=== PATIENT | male | born 1975 | race Caucasian/White ===

== ENCOUNTER 2020-12-02 19:52 | Emergency (ER) | payer BC, SELFPAY ==
[2020-12-02] VITALS (10 sets, daily range): BP systolic 156–205; BP diastolic 98–118; PULSE 100–145; RESP 16–26; TEMP 36.9; O2SAT 93–97; BMI 25.8
--- NOTE | 2020-12-02 20:07 | DI.RAD.S_ITS ---
PROCEDURE: XR CHEST 1V INDICATIONS: chest pain TECHNIQUE: One view of the chest was acquired. COMPARISON: [facility], CR, XR CHEST 1VW (PORTABLE), 03/19/2016, 8:37. FINDINGS: Surgical changes and devices: None. Lungs and pleura: Lungs are clear. No pleural effusions or pneumothorax. Mediastinum: Mediastinal contours appear normal. Heart size is normal. Bones and chest wall: No suspicious bony lesions. Overlying soft tissues appear unremarkable. IMPRESSION: No acute cardiopulmonary disease. Dictated by: Brandin Parham M.D. on 12/02/2020 at 20:39 Approved by: Brandin Parham M.D. on 12/02/2020 at 20:39
[2020-12-02 20:28] LABS: Alanine Aminotransferase 51 IU/L (<50); Albumin 4.9 g/dL (3.5-5.0); Albumin Globulin Ratio 1.4 (1.0-2.8); Alkaline Phosphatase 120 U/L (38-126); Aspartate Aminotransferase 47 IU/L (17-59); BUN Creatinine Ratio 22.9 (6-22); Bilirubin Total 0.5 mg/dL (0.2-1.3); Blood Urea Nitrogen 16 mg/dL (9-20); Calcium 9.8 mg/dL (8.4-10.2); Carbon Dioxide 26 mmol/L (22-32); Chloride 97 mmol/L (98-107); Creatine Kinase 101 U/L (55-170); Estimated Glomerular Filt Rate > 60.0 mL/min (>60); Globulin 3.6 g/dL (1.7-4.1); Glucose 134 mg/dL (70-100); HEMOLYSIS 34 (0-50); Lipase 162 U/L (23-300); Potassium 3.7 mmol/L (3.4-5.1); Sodium 137 mmol/L (137-145); Total Protein 8.5 g/dL (6.3-8.2)
[2020-12-02 20:35] LABS: Add Manual Diff / Slide Review NO; Basophils Absolute Auto 0 /uL (0-100); Basophils Percent Auto 0.3 % (0-2); Eosinophils Absolute Auto 100 /uL (0-450); Hematocrit 46.1 % (41-53); Hemoglobin 16.3 g/dL (13.5-17.5); Lymphocytes Absolute Auto 2800 /uL (1100-4500); Lymphocytes Percent Auto 26.9 % (25-40); Mean Corpuscular HGB Conc 35.4 % (30-36); Mean Corpuscular Hemoglobin 33.1 PG (26-34); Mean Corpuscular Volume 93.4 fL (80-100); Monocytes Absolute Auto 800 /uL (0-900); Neutrophils Absolute Auto 6600 /uL (1500-7000); Neutrophils Percent Auto 63.8 % (50-75); Platelet Count 310 X10^3/uL (150-400); Red Blood Cell Count 4.94 X10^6/uL (4.5-5.9); Red Cell Distribution Width 13.1 % (11.6-14.8); White Blood Cell Count 10.4 X10^3/uL (4.5-11.0)
[2020-12-02 20:40] LABS: Troponin I < 0.012 ng/mL (0.01-0.034)
[2020-12-02 20:43] LABS: CKMB % Relative Index 0.6 % (1.5-5.0)
[2020-12-02] MEDS: SODIUM CHLORIDE 0.9% 1,000 ML 1000 ML IV (20:55)
[2020-12-02 21:19] LABS: D Dimer 948 ng/mL (<230)
--- NOTE | 2020-12-02 21:28 | ED_ITS ---
HPI - Arrhythmia/Palpitations General Chief Complaint: Arrhythmia/Palpitations Stated Complaint: HEART RATE 170 Time Seen by Provider: 12/02/20 20:47 Source: patient and family () Mode of arrival: Ambulatory Limitations: no limitations History of Present Illness HPI narrative: This is a 45-year-old male who comes in with complaint of elevated heart rate that occurred while he was eating dinner. He states he has an apple watch and noted his heart rate was in the 170 patient and had some chest pain, he felt a little bit short of breath. He felt hot but was not diaphoretic. No lightheadedness or passing out. No nausea or vomiting. No other GI or urinary symptoms. He feels much better now that his heart rate is improving. Patient has had 3 episodes last 3 weeks. One while exercising, the second he states while doing nothing and the third tonight while eating dinner. He has no medical issues. No prior surgeries. Denies allergies. Positive for tobacco, patient does drink 3 alcoholic drinks daily. Does not use any illicit. He is accompanied by his and they were celebrating there 20th anniversary this evening. Patient does not have any known cardiac, pulmonary or embolic family history except for some cardiac issues were grandparents. He has not any long distance travel or sedentary activity. Review of Systems Review of Systems ROS Unobtainable: All systems reviewed & are unremarkable except as noted in HPI and below Patient History Social History Smoking Status: Current every day smoker Smoking Status: Current every day smoker alcohol intake frequency: 3 or more drinks per day Alcohol type: wine Substance Use Type: does not use Exam Narrative Exam Narrative: GENERAL: Alert and oriented x three, well-nourished male in mild distress. HEENT: Head normocephalic, atraumatic, EOMI, pupils reactive, face symmetric, moist mucous membranes NECK: Supple, full range of motion CARDIOVASCULAR: Tachycardic in the 105 range but regular rate and rhythm without murmurs, rubs or gallops. No JVD. RESPIRATORY: Breath sounds equal bilaterally, no wheezes rales or rhonchi. ABDOMEN: Soft, nontender. Normoactive bowel sounds all 4 quadrants. No guarding or rebound, rigidity, no mass : No CVA tenderness EXTREMITIES: Normal range of motion, no clubbing or edema. Neurovascularly intact NEUROLOGICAL: Cranial nerves II through XII grossly intact. Moving all extremities SKIN: Warm, dry, no petechiae, no rashes or lesions. Initial Vital Signs Initial Vital Signs: Vital Signs Blood Pressure 205/118 H 12/02/20 20:03 Course Orders Ordered: ED Orders 12/02/20 20:07 XR chest 1V Stat EKG-12 Lead Stat 12/02/20 20:10 Complete Blood Count AUTO DIFF Stat Comprehensive Metabolic Panel Stat D Dimer Stat Lipase Stat Troponin & CK Cardiac Panel Stat 12/02/20 21:34 CT angio chest PE protocol Stat Discontinued Medications Sodium Chloride (Normal Saline 0.9%) 1,000 mls @ 1,000 mls/hr IV BOLUS ONE Stop: 12/02/20 21:47 Last Infusion: 12/02/20 21:50 Dose: 0 mls/hr Documented by: Admin: 12/02/20 20:55 Dose: 1,000 mls/hr Documented by: JCARLOS Reevaluation(s) Time: 23:18 Consultations Consultation #1: Dr. Contreras, recommend follow-up but patient can also try [email or web address]. Link shared with myself and patient. Discussed possible SVT with sudden onset but with slowly improving sinus tachycardia here in the department seems less likely. They are happy to follow-up with the patient. As he is improving here in the department plan for short-term follow-up with Cardiology. Time: 11:18 Vital Signs Vital signs: Vital Signs - 8 hr 12/02/20 20:04 12/02/20 20:09 12/02/20 20:30 Temperature 98.4 F Pulse Rate 137 H 130 H 119 H Respiratory Rate 19 26 H 20 Blood Pressure 205/118 H 179/109 H 163/101 H Pulse Oximetry 96 96 93 12/02/20 21:00 12/02/20 21:30 12/02/20 22:00 Temperature Pulse Rate 106 H 100 H 107 H Respiratory Rate 19 18 19 Blood Pressure 156/100 H 156/98 H Pulse Oximetry 95 96 94 12/02/20 22:30 12/02/20 23:00 12/02/20 23:20 Temperature Pulse Rate 109 H 108 H Respiratory Rate 19 19 Blood Pressure 164/100 H Pulse Oximetry 94 94 MDM - Arrhythmia/Palpitations Lab Data Attestation: I reviewed the patient's lab results. Result diagrams: 12/02/20 20:10 12/02/20 20:10 Labs: Lab Results 12/02/20 12/02/20 12/02/20 Range/Units 20:10 20:10 20:10 WBC 10.4 (4.5-11.0) X10^3/uL RBC 4.94 (4.5-5.9) X10^6/uL Hgb 16.3 (13.5-17.5) g/dL Hct 46.1 (41-53) % MCV 93.4 (80-100) fL MCH 33.1 (26-34) PG MCHC 35.4 (30-36) % RDW 13.1 (11.6-14.8) % Plt Count 310 (150-400) X10^3/uL Neut % (Auto) 63.8 (50-75) % Lymph % (Auto) 26.9 (25-40) % [place] % (Auto) 8.0 (3-14) % Eos % (Auto) 1.0 L (2-4) % Baso % (Auto) 0.3 (0-2) % Neut # (Auto) 6600 (8945-1846) /uL Lymph # (Auto) 2800 (0538-0233) /uL [place] # (Auto) 800 (0-900) /uL Eos # (Auto) 100 (0-450) /uL Baso # (Auto) 0 (0-100) /uL D-Dimer 948 H (<230) ng/mL Sodium 137 (137-145) mmol/L Potassium 3.7 (3.4-5.1) mmol/L Chloride 97 L (98-107) mmol/L Carbon Dioxide 26 (22-32) mmol/L BUN 16 (9-20) mg/dL Creatinine 0.70 (0.66-1.25) mg/dL Estimated GFR > 60.0 (>60) mL/min BUN/Creatinine Ratio 22.9 H (6-22) Glucose 134 H (70-100) mg/dL Calcium 9.8 (8.4-10.2) mg/dL Total Bilirubin 0.5 (0.2-1.3) mg/dL AST 47 (17-59) IU/L ALT 51 H (<50) IU/L Alkaline Phosphatase 120 (38-126) U/L Total Creatine Kinase 101 (55-170) U/L CK-MB (CK-2) 0.60 (<2.37) ng/mL CK-MB (CK-2) Rel Index 0.6 L (1.5-5.0) % Troponin I < 0.012 (0.01-0.034) ng/mL Total Protein 8.5 H (6.3-8.2) g/dL Albumin 4.9 (3.5-5.0) g/dL Globulin 3.6 (1.7-4.1) g/dL Albumin/Globulin Ratio 1.4 (1.0-2.8) Lipase 162 (23-300) U/L Imaging Data Chest x-ray: Radiologist's Impresson: [address] [id number] ReportSigned Patient: Alexi Mcbride MARKOS#: [id number]: 1975Acct:[id number]/Sex: 45 / MDate of Service: 12/02/20Loc: EDAccession Number: [id number] Procedure: XR chest 1V Ordering Provider: Irasema Clark D.O. PROCEDURE: XR CHEST 1V INDICATIONS: chest pain TECHNIQUE: One view of the chest was acquired. COMPARISON: [facility], , XR CHEST 1VW (PORTABLE), 03/19/2016, 8:37. FINDINGS: Surgical changes and devices: None. Lungs and pleura: Lungs are clear. No pleural effusions or pneumothorax. Mediastinum: Mediastinal contours appear normal. Heart size is normal. Bones and chest wall: No suspicious bony lesions. Overlying soft tissues appear unremarkable. IMPRESSION: No acute cardiopulmonary disease. Dictated by: Brandin Parham M.D. on 12/02/2020 at 20:39 Approved by: Brandin Parham M.D. on 12/02/2020 at 20:39 CT scan - chest: Radiologist's Impresson: [address] [id number] Scan ReportSigned Patient: Alexi Mcbride MARKOS#: [id number]: 1975Acct:[id number]/Sex: 45 / MDate of Service: 12/02/20Loc: EDAccession Number: [id number] Procedure: CT angio chest PE protocol Ordering Provider: Irasema Clark D.O. PROCEDURE: CT ANGIO CHEST PE PROTOCOL INDICATIONS: fast heart beat, palpitations, shortness of breath TECHNIQUE: After the administration of intravenous contrast, 2 mm thick sections acquired from the pulmonary apices to the posterior costophrenic angles. 3-dimensional maximum intensity projection (MIP) coronal and sagittal reformats were then acquired through the thorax. For radiation dose reduction, the following was used: automated exposure control, adjustment of mA and/or kV according to patient size. COMPARISON: [facility], CT, CT ANGIO CHEST ABD, 03/19/2016, 10:26. [facility], CR, XR CHEST 1V, 12/02/2020, 20:19. FINDINGS: Image quality: Excellent. Pulmonary arteries: Pulmonary arteries are normal in size, and demonstrate no intraluminal filling defects to suggest central pulmonary embolism. Lungs and pleura: Left basilar atelectasis. Lungs are otherwise clear. No pleural effusions or pneumothorax. Central and peripheral airways are patent. Mediastinum: Heart size is normal, without pericardial effusion. No mediastinal or hilar adenopathy. Thoracic aorta is normal in caliber and enhancement. Esophagus is normal in caliber. Small hiatal hernia. Bones and chest wall: No suspicious bony lesions. Ribs and thoracic spine appear intact throughout. Thyroid gland is normal. No axillary or supraclavicular adenopathy. Abdomen: Visualized upper abdominal solid organs appear normal in the early arterial phase of enhancement. IMPRESSION: No evidence for pulmonary embolism. Dictated by: Brandin Parham M.D. on 12/02/2020 at 22:02 Approved by: Brandin Parham M.D. on 12/02/2020 at 22:06 ECG Data Attestation: I personally reviewed and interpreted this ECG as follows: Prior ECG tracings: not available for review Interpretation: Sinus tach with a rate of 129 [place] 136 QRS 86 and QTC 442 patient has Q-wave in lead 3. No elevation depression appreciated. MDM Narrative Medical decision making narrative: Patient does have an elevated D-dimer with only risk factors and tobacco abuse. Patient has had 3 episodes of elevated heart rate to 170s at home with his Apple watch. He came in in 140 range here in the department. PE you ordered to rule out pulmonary emboli. Suspect patient may be having episodes of SVT although here in the department was only sinus tachycardia. Patient's heart rate continued to improve the department. Fluid seem to make somewhat mild improvement but was still 105-[address] angiography was negative with no acute structural changes appreciated. Patient was on the monitor and continued only be in sinus tachycardia without any other arrhythmias appreciated. Consultation with Card iology they recommend follow-up but no additional interventions at this time. Patient feels comfortable with this plan. He was encouraged to return if he has recurrent episodes in order to try to capture them. Also discussed vagal maneuvers and that he may attempt if needed. Discharge Plan Departure Patient Disposition: Home Clinical Impression: Tachycardia Instructions: DI for Tachycardia Activity Restrictions/Additional Instructions: Follow up with cardiology for recheck. Call for an appointment in the next week. They can help set you up with a holter monitor or ziopatch to monitor your heart rate and rhythm at home. In the meantime cardiology recommends trying [employer] mobile at home while awaiting follow up. [email or web address] If you have recurrent episodes it is an alternative way to capture them. Return for fevers, recurrent episodes, chest pain, shortness of breath, lightheadedness or passing out, new swelling in your extremities, persistent vomiting, black or bloody stools or other new or concerning symptoms. Referrals: Vika Contreras MD [Physician] -
--- NOTE | 2020-12-02 21:34 | DI.CT.S_ITS ---
PROCEDURE: CT ANGIO CHEST PE PROTOCOL INDICATIONS: fast heart beat, palpitations, shortness of breath TECHNIQUE: After the administration of intravenous contrast, 2 mm thick sections acquired from the pulmonary apices to the posterior costophrenic angles. 3-dimensional maximum intensity projection (MIP) coronal and sagittal reformats were then acquired through the thorax. For radiation dose reduction, the following was used: automated exposure control, adjustment of mA and/or kV according to patient size. COMPARISON: [facility], CT, CT ANGIO CHEST ABD, 03/19/2016, 10:26. [facility], CR, XR CHEST 1V, 12/02/2020, 20:19. FINDINGS: Image quality: Excellent. Pulmonary arteries: Pulmonary arteries are normal in size, and demonstrate no intraluminal filling defects to suggest central pulmonary embolism. Lungs and pleura: Left basilar atelectasis. Lungs are otherwise clear. No pleural effusions or pneumothorax. Central and peripheral airways are patent. Mediastinum: Heart size is normal, without pericardial effusion. No mediastinal or hilar adenopathy. Thoracic aorta is normal in caliber and enhancement. Esophagus is normal in caliber. Small hiatal hernia. Bones and chest wall: No suspicious bony lesions. Ribs and thoracic spine appear intact throughout. Thyroid gland is normal. No axillary or supraclavicular adenopathy. Abdomen: Visualized upper abdominal solid organs appear normal in the early arterial phase of enhancement. IMPRESSION: No evidence for pulmonary embolism. Dictated by: Brandin Parham M.D. on 12/02/2020 at 22:02 Approved by: Brandin Parham M.D. on 12/02/2020 at 22:06
== END 2020-12-02 23:26 | disposition home or self-care (01) ==
PROVIDERS: Emergency Provider Emergency Medicine
DX: R00.0 Tachycardia, unspecified (principal); R07.9 Chest pain, unspecified; R06.02 Shortness of breath; R00.2 Palpitations
CPT/HCPCS: 36415; 71045; 71275; 80053; 82550; 82553; 83690; 84484; 85025; 85379; 93005; 96360; 99284; Q9967